=== PATIENT | male | born 1995 | race Two or more races ===

== ENCOUNTER 2022-02-10 17:16 | Emergency (ER) | payer SELFPAY ==
[~2022-02-10] VITALS: Ht 172.7 cm; Wt 65.9 kg
[2022-02-10] MEDS ORDERED: LIDOCAINE/PF 1% 2 ML VIAL IM ONE ×2 (18:15)
[2022-02-10] MEDS ORDERED: CefTRIAXone SODIUM 1 GM/VIAL IM ONE (18:15)
[2022-02-10] MEDS ORDERED: AZITHROMYCIN 500 MG TABLET PO ONE (18:15)
[2022-02-10 18:55] LABS: APPEARANCE,URINE HAZY (CLEAR); BILIRUBIN,URINE NEGATIVE (NEGATIVE); GLUCOSE, URINE (UA) NEGATIVE (NEGATIVE); KETONES,URINE NEGATIVE (NEGATIVE); LEUKOCYTE ESTERASE ,URINE LARGE (NEGATIVE); NITRATE,URINE NEGATIVE (NEGATIVE); OCCULT BLOOD,URINE NEGATIVE (NEGATIVE); PROTEIN,URINE TRACE mg/dL (NEGATIVE); SPECIFIC GRAVITIY, URINE 1.019 (1.003-1.030); UROBILINOGEN,URINE <=1.0 mg/dL (<=1.0)
[2022-02-10 19:02] LABS: BACTERIA,URINE Moderate /HPF (None Seen); RBC,URINE 0-2 /HPF (0-2); SQUAMOUS EPITHELIAL CELL,UR Rare /LPF (None Seen); WBC,URINE 51-100 /HPF (0-5)
[2022-02-10 19:15] VITALS: BP 150/107
[2022-02-10] MEDS ORDERED: ONDANSETRON HCL 4 MG/2 ML VIAL IM ONE (19:30)
== END 2022-02-10 19:52 | disposition home or self-care (01) ==
LOC: EMS 17:16
DX: N34.2 Other urethritis (principal); I10 Essential (primary) hypertension; F17.210 Nicotine dependence, cigarettes, uncomplicated; F12.90 Cannabis use, unspecified, uncomplicated
CPT/HCPCS: 81001; 87086; 87491; 87591; 96372; 99284; J0696; J2405; J3490; Q9967